=== PATIENT | female | born 1970 | race Caucasian/White ===

== ENCOUNTER 2017-09-08 16:14 | Emergency (ER) | payer SELFPAY ==
[2017-09-08 16:32] VITALS: TEMP 98.4; O2SAT 97
[2017-09-08] MEDS ORDERED: methylPREDNISolone SODIUM SUC 125 MG/2 ML VIAL IM ONE (16:38)
[2017-09-08] MEDS ORDERED: diphenhydrAMINE HCL 12.5 MG/5 ML UD PO ONE (16:38)
--- NOTE | 2017-09-08 16:41 | ED.PDOC ---
History of Present Illness - General Chief Complaint: Skin/Abrasion/Tear Stated Complaint: Rash, swelling to upper extremities Time Seen by Provider: 09/08/17 16:30 Source: patient, RN notes reviewed, Vital Signs reviewed Exam Limitations: no limitations - History of Present Illness Initial Comments: Patient comes in with c/o rash on her hands and forearms. Symptoms started after doing dishes at work. Worsened yesterday after wearing plastic gloves. Worsened again today when she got hot and sweaty. She is concerned that it is spreading and worried that she does not know what is causing it. Timing/Duration: getting worse - over the past 2 days Severity: mild Location: hands, extremities Improving Factors: nothing Worsening Factors: other - getting hot Associated Symptoms: itching, rash Allergies/Adverse Reactions: Allergies Insects Allergy (Uncoded 09/08/17 16:32) Anaphylaxis Home Medications: Ambulatory Orders Ibuprofen 200 mg PO PRN PRN 06/13/15 Methylprednisolone [Medrol Dose Blane] 4 mg PO DAILY #1 pack 09/08/17 Review of Systems - Review of Systems Constitutional: States: no symptoms reported Respiratory: States: no symptoms reported Cardiology: States: no symptoms reported Musculoskeletal: States: no symptoms reported Skin: States: see HPI Neurological: States: no symptoms reported All other Systems: No Change from Baseline Past Medical History (General) - Patient Medical History Hx Seizures: No Hx Stroke: No Hx Asthma: No Hx of COPD: No Hx Cardiac Disorders: No Hx Congestive Heart Failure: No Hx Pacemaker: No Hx Hypertension: No Hx Diabetes: No Hx MRSA: No Surgical History: no surgical history - Vaccination History Hx Influenza Vaccination: No Hx Pneumococcal Vaccination: No - Social History Hx Tobacco Use: Yes Hx Alcohol Use: No Hx Substance Use: No Hx Physical Abuse: No Hx Emotional Abuse: No - Female History Patient is a Female of Child Bearing Age (10 -59 yrs old): Yes Hx Last Menstrual Period: 11/13/12 Patient : No Family Medical History - Family History Mother Living Status: Still Living Hx Family Cancer: Yes - Breast Physical Exam - Physical Exam General Appearance: Anxious, No apparent distress, Well Developed, Well Groomed , Well Hydrated, Well Nourished Eyes, Ears, Nose, Throat Exam: pharynx normal Neck: supple, normal inspection Cardiovascular/Chest: regular rate, rhythm, no gallop, no JVD, no murmur Respiratory: lungs clear, normal breath sounds, no respiratory distress, no accessory muscle use Extremity: normal range of motion, non-tender Neurologic: alert, normal mood/affect, oriented x 3 Skin Exam: warm/dry, normal color Skin Problem Location: upper extremities - bilateral forearms Skin Character: erythema, rash Comments: Vital Signs 09/08/17 16:27 Temperature 98.4 F Pulse Rate [ 80 Left Radial] Respiratory 20 Rate Blood Pressure 155/103 [Left Arm] O2 Sat by Pulse 97 Oximetry Progress - Progress Progress: 09/08/17 17:52 Rash is slowly fading. Her mother has a prescription steroids cream. Advised ok to use up to 3X/day. Recommended cool compresses, cool showers and avoid/limit heat exposure. Will send Rx for Medrol dose pack to pharmacy. If not improving in 2-3 days or if worsening follow up with PCP Departure - Departure Clinical Impression: Allergic dermatitis Time of Disposition: 17:53 Disposition: Discharge to Home or Self Care Condition: Good Departure Forms: ED Discharge - Pt. Copy, Patient Portal Self Enrollment Instructions: DI for General Allergic Reactions Diet: resume usual diet Activity: increase activity as tolerated Referrals: Kristopher Sung MD [Primary Care Provider] - 1-2 Weeks Prescriptions: Methylprednisolone [Medrol Dose Blane] 4 mg PO DAILY #1 pack Home Medications: Ambulatory Orders Ibuprofen 200 mg PO PRN PRN 06/13/15 Methylprednisolone [Medrol Dose Blane] 4 mg PO DAILY #1 pack 09/08/17
[2017-09-08 18:04] VITALS: BP 136/85
== END 2017-09-08 18:04 | disposition home or self-care (01) ==
LOC: ER 16:14
DX: L23.9 Allergic contact dermatitis, unspecified cause (principal); Z87.891 Personal history of nicotine dependence
CPT/HCPCS: J2930; Q0163

== ENCOUNTER 2018-01-12 01:46 | Emergency (ER) | payer SELFPAY ==
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
[2018-01-12] MEDS ORDERED: SODIUM CHLORIDE 0.9% 1000ML 1,000 ML IVS ONE (03:16)
[2018-01-12] MEDS ORDERED: cefTRIAXone SODIUM 1 GM in SODIUM CHL 0.9% 50ML MIN-BAG+ 50 ML IVPB ONE (03:16)
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
[2018-01-12] MEDS ORDERED: cefTRIAXone SODIUM 1 GM VIAL ONE (03:24)
[2018-01-12] MEDS ORDERED: SODIUM CHL 0.9% 50ML MIN-BAG+ 50 ML IVPB ONE (03:24)
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
[2018-01-12 03:38] VITALS: BP 117/42; TEMP 98.1; O2SAT 95
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
== END 2018-01-12 03:45 | disposition short-term general hospital (02) ==
LOC: ER 01:46
DX: S12.101A Unspecified nondisplaced fracture of second cervical vertebra, initial encounter for closed fracture (principal); S22.42XA Multiple fractures of ribs, left side, initial encounter for closed fracture; S36.039A Unspecified laceration of spleen, initial encounter; S36.899A Unspecified injury of other intra-abdominal organs, initial encounter; F10.129 Alcohol abuse with intoxication, unspecified; F15.90 Other stimulant use, unspecified, uncomplicated; Y90.6 Blood alcohol level of 120-199 mg/100 ml; V48.5XXA Car driver injured in noncollision transport accident in traffic accident, initial encounter; Y92.411 Interstate highway as the place of occurrence of the external cause
CPT/HCPCS: 36415; 70450; 71045; 71260; 72125; 74177; 80053; 80307; 80320; 81001; 84703; 85025; 85610; 85730; J0696; J7030; J7050